=== PATIENT | female | born 1990 | race Caucasian/White ===

== ENCOUNTER → 2020-09-10 10:25 | Outpatient (BNVA) | payer OTHER, SELFPAY | PROVIDERS: PCP Internal Medicine; Visit Provider Surgery | DX: L72.0 Epidermal cyst (principal) | CPT/HCPCS: 99213 ==

== ENCOUNTER 2021-12-03 10:43 | Outpatient (REF) | payer OTHER, SELFPAY ==
[2021-12-03 12:22] LABS: Binax Now Covid-19 Ag Negative (Negative)
[2021-12-03 12:23] LABS: Binax Internal Control QC Valid
== END 2021-12-03 10:44 | disposition home or self-care (01) ==
LOC: HO.LAB 10:43
PROVIDERS: Visit Provider Internal Medicine
DX: Z20.822 Contact with and (suspected) exposure to COVID-19 (principal)
CPT/HCPCS: C9803